=== PATIENT | female | born 1985 | race American Indian/Alaskan Native ===

== ENCOUNTER 2016-10-20 07:52 | Inpatient (IN) | payer OTHER ==
[2016-10-20] MEDS ORDERED: LACTATED RINGERS 1,000 ML ONE ×2 (08:29→10:30)
[2016-10-20] MEDS ORDERED: LACTATED RINGERS 1,000 ML IV SCH (11:00)
[2016-10-20 11:25] LABS: Hematocrit 33.3 % (30.3-42.9); Hemoglobin 10.6 gm/dl (10.1-14.3); Mean Corpuscular HGB Conc 32 % (30-34); Mean Corpuscular Hemoglobin 24 pg (28-32); Mean Corpuscular Volume 76 fl (79-97); Platelet Count 237 K/mm3 (140-440); Red Blood Count 4.39 M/mm3 (3.65-5.03); Red Cell Distribution Width 17.6 % (13.2-15.2)
[2016-10-20 11:26] LABS: Basophils % (Auto) 0.5 % (0.0-1.8); Eosinophils % (Auto) 0.7 % (0.0-4.3)
[2016-10-20] MEDS ORDERED: CLEOCIN 600 MG/50 mL 600 MG/50 ML BAG IV NR (11:30)
[2016-10-20] MEDS ORDERED: REGLAN IV NR (11:30)
[2016-10-20] MEDS ORDERED: BICITRA PO NR (11:30)
[2016-10-20] MEDS ORDERED: PEPCID IV NR (11:30)
[2016-10-20] MEDS ORDERED: GARAMYCIN 160 MG in NACL 0.9% 100 ML IV SCH (11:30)
[2016-10-20] MEDS ORDERED: CLEOCIN 900 MG/50 mL 900 MG/50 ML BAG IV ONE (13:01)
[2016-10-20] MEDS ORDERED: BICITRA ONE (13:02)
[2016-10-20] MEDS ORDERED: GARAMYCIN/NS 80 MG/100 ML 100 ML IV ONE (13:02)
[2016-10-20] MEDS ORDERED: REGLAN ONE (13:02)
[2016-10-20] MEDS ORDERED: PEPCID IV ONE (13:02)
--- NOTE | 2016-10-20 13:02 | History and Physical Report ---
History of Present Illness Date of examination: 10/20/16 Date of admission: 10/20/16 Chief complaint: contractions History of present illness: Patient presented to triage complaining of contractions patient stated the contractions were being felt every few minutes. While in triage patient was noted to be leah every 2-8 minutes. Patient was given IV hydration without resolution of contractions. Patient stated that contractions were increasing in intensity and was requesting pain medication. Patient was determined to be in latent labor and was decided that section would be done at this time. Patient also desires bilateral tubal ligation. All risks benefits and alternatives were discussed with the patient. Consents were signed and placed on the chart. Menstrual History LMP: 01/20/2016 EDC Calculations LMP: 10/26/2016 EDC Confirmation: 10/26/2016 Gestational Age: 6 weeks Past History : 3 Prev. attempt? 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 of genital herpes: no Genetic History Congenital Heart Defect: Mom: no Dad: no Donn Disease: Mom: no Dad: no Thalassemia Mom: no Dad: no Neural Tube Defect Mom: no Dad: no Down's Syndrome Mom: no Dad: no Khadar-Sachs Mom: no Dad: no Sickle Cell Disease/Trait Mom: yes Dad: no Comments: Father has trait Hemophilia Mom: no Dad: no Muscular Dystrophy Mom: no Dad: no Cystic Fibrosis Mom: no Dad: no Danilo Chorea Mom: no Dad: no Mental Retardation Mom: no Dad: no Fragile X Mom: no Dad: no Other Genetic/Chromosomal Disorder Mom: no Dad: no Child w/other defect Mom: no Dad: no Enviromental Exposures Xray Exposure: no Medication, drug, or alcohol use since LMP: no Chemical/Other Exposure: no Exposure to Cat Liter: no Hx of Parvovirus (Fifth Disease): no Active Medications: ALBUTEROL PRN () Q NASAL () CLOBEX SPRAY 0.05 % LIQD (CLOBETASOL PROPIONATE) NUVARING 0.12-0.015 MG/24HR RING (ETONOGESTREL-ETHINYL ESTRADIOL) use as directed NUVARING 0.12-0.015 MG/24HR RING (ETONOGESTREL-ETHINYL ESTRADIOL) use as directed DESOXIMETASONE CREA (DESOXIMETASONE CREA) Current Allergies (reviewed today): * PCN (Critical) Past History Past Medical History: asthma, other (Lupus) 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 denies: smoking, alcohol abuse, prescription drug abuse, IV drug use - Obstetrical History Expected Date of Delivery: 10/26/16 Actual Gestation: 39 Week(s) 1 Day(s) : 3 Para: 1 Number of Living Children: 1 Medications and Allergies Allergies Allergy/AdvReac Type Severity Reaction Status Date / Time Penicillins Allergy Severe Itching Verified 10/20/16 07:58 Home Medications Medication Instructions Recorded Confirmed Last Taken Type Ibuprofen [Motrin 800 MG tab] 800 mg PO Q8HR PRN #30 tablet 10/20/16 Unknown Rx Lidocain2.5%/Prilocai2.5% [Emla] 2 gm TP ONCE #1 tube 10/20/16 Unknown Rx oxyCODONE /ACETAMINOPHEN [Percocet 1 tab PO Q4HR #30 tab 10/20/16 Unknown Rx 5/325] Active Meds: Active Medications Citric Acid/Sodium Citrate (Bicitra) 30 ml PO ONCE NR Stop: 10/20/16 18:00 Famotidine (Pepcid) 20 mg IV ONCE NR Stop: 10/20/16 18:00 Clindamycin HCl (Cleocin 600 Mg/50 Ml) 600 mg in 50 mls @ 100 mls/hr IV PREOP NR PRN Reason: Protocol Stop: 10/20/16 18:00 Gentamicin Sulfate 160 mg/ (Sodium Chloride) 104 mls @ 200 mls/hr IV PREOP KRISTYN PRN Reason: Protocol Stop: 10/20/16 18:00 Lactated Ringer's (Lactated Ringers) 1,000 mls @ 2,250 mls/hr IV PREOP KRISTYN Stop: 10/21/16 11:27 Oxytocin/Sodium Chloride (Pitocin/Ns 20 Unit/1000ml Drip) 20 units in 1,000 mls @ 0 mls/hr IV TITR KRISTYN PRN Reason: As Directed Metoclopramide HCl (Reglan) 10 mg IV ONCE NR Stop: 10/20/16 18:00 Review of Systems All systems: negative - Vital Signs Vital signs: Vital Signs Pulse Pulse Ox 89 100 10/20/16 08:06 10/20/16 08:06 Temp Pulse Resp BP Pulse Ox 96.6 F L 88 20 118/71 100 10/20/16 08:10 10/20/16 12:51 10/20/16 08:10 10/20/16 08:10 10/20/16 12:51 - Physical Exam Cardiovascular: Normal S1, Normal S2 Lungs: Positive: Clear to auscultation, Normal air movement Abdomen: Positive: normal appearance, soft. Negative: distention, tenderness, guarding Genitourinary (Female): Positive: normal external genitalia, normal perenium - Obstetrical FHR: auscultation normal Results Result Diagrams: 10/20/16 09:10 Abnormal lab results 10/20/16 Range/Units 09:10 MCV 76 L (79-97) fl MCH 24 L (28-32) pg RDW 17.6 H (13.2-15.2) % Seg Neutrophils % 78.5 H (40.0-70.0) % All other labs normal. Assessment and Plan - Patient Problems (1) Previous delivery affecting Current Visit: Yes Status: Acute Plan to address problem: -admitting prepare for repeat section due to prolonged latent labor (2) 39 weeks gestation of Current Visit: Yes Status: Acute (3) Lupus Current Visit: Yes Status: Acute Qualifiers: Systemic lupus erythematosus type: S Systemic lupus erythematosus organ involvement: S Plan to address problem: -stable at this time patient admits that she has not been taking medications and has prescribed. (4) Obesity Current Visit: Yes Status: Acute Qualifiers: Obesity type: O Obesity severity: O (5) Sterilization Current Visit: Yes Status: Acute Plan to address problem: -all risks benefits and alternatives were discussed with the patient. Consents are signed and placed in the chart. (6) Anemia affecting in third trimester Current Visit: Yes Status: Acute Plan to address problem: -asymptomatic
[2016-10-20] MEDS ORDERED: PITOCin/NS 20 UNIT/1000ML DRIP 20,000 MILLIUNITS/1,000 ML BAG IV ONE (13:04)
[2016-10-20] MEDS ORDERED: MORPHINE ONE (13:50)
[2016-10-20] MEDS ORDERED: GELFOAM POWDER 1GM MM STA (13:52)
[2016-10-20] MEDS ORDERED: THROMBIN (BOVINE) TP STA (13:53)
[2016-10-20] MEDS ORDERED: GARAMYCIN 80 MG in NACL 0.9% 100 ML IV ONE (14:12)
[2016-10-20] MEDS ORDERED: WATER FOR IRRIG STERILE IR ONE (14:25)
[2016-10-20] MEDS ORDERED: NACL 0.9% IR ONE (14:25)
[2016-10-20] MEDS ORDERED: VERSED ONE (14:42)
[2016-10-20] MEDS: PITOCin/NS 20 UNIT/1000ML DRIP 20 UNITS/1,000 ML BAG IV SCH ×2 (15:00→16:15)
[2016-10-20] MEDS ORDERED: DILAUDID ONE (15:17)
--- NOTE | 2016-10-20 15:17 | Post Anesthesia Evaluation ---
- Post Anesthesia Evaluation Patient Participated: Yes Airway Patent: Yes Stable Respiratory Function: Yes Nausea/Vomiting: No Temp > 96.8F: Yes Pain Manageable: Yes Adequeate Hydration: Yes Anesthesia Complications: No Block Receding Appropriately: Yes Patient on Ventilator: No
--- NOTE | 2016-10-20 15:18 | Anesthesia Consultation ---
Anesthesia Consult and Med Hx Date of service: 10/20/16 - Airway Anesthetic Teeth Evaluation: Good ROM Head & Neck: Adequate Mental/Hyoid Distance: Adequate Mallampati Class: Class II Intubation Access Assessment: Probably Good - Pulmonary Exam CTA: Yes - Cardiac Exam Cardiac Exam: RRR - Pre-Operative Health Status ASA Pre-Surgery Classification: ASA3 Proposed Anesthetic Plan: Spinal - Pulmonary Hx Asthma: Yes (last attack 3-4 months ago) COPD: No Hx Pneumonia: No - Cardiovascular System Hx Hypertension: No - Central Nervous System Hx Seizures: No Hx Psychiatric Problems: No - Endocrine Hx Renal Disease: No Hx End Stage Renal Disease: No Hx Hypothyroidism: No Hx Hyperthyroidism: No - Hematic Hx Anemia: Yes Hx Sickle Cell Disease: No - Other Systems Hx Alcohol Use: No Hx Obesity: Yes (BMI > 40) - Additional Comments Anesthesia Medical History Comments: LUPUS
--- NOTE | 2016-10-20 15:18 | Anesthesia Day of Surgery ---
Anesthesia Day of Surgery - Day of Surgery Patient Examined: Yes Patient H&P Reviewed: Yes Patient is NPO: Yes
[2016-10-20] MEDS ORDERED: NARCAN 0.4 MG/1 ML IV PRN ×2 (15:30→15:47)
[2016-10-20] MEDS ORDERED: TORADOL IV PRN (15:30)
[2016-10-20] MEDS ORDERED: BENADRYL IV PRN (15:30)
[2016-10-20] MEDS ORDERED: MORPHINE IV PRN ×2 (15:30)
[2016-10-20] MEDS ORDERED: ZOFRAN IV PRN (15:30)
--- NOTE | 2016-10-20 15:46 | Operative Report ---
Operative Report Operative Report: Date of procedure:10/20/2016 Pre-operative diagnosis: 39 weeks' gestation Latent labor Lupus Anemia Desires permanent sterilization Asthma Post-operative diagnosis: same Procedure name(s): repeat low transverse section via Pfannenstiel skin incision Bilateral tubal ligation via [place] method Surgeon: Dr. Powers Ship Boss: Leonarda Vinson CST Anesthesia: spinal EBL: 500 mL Urine output: 35 mL of clear urine at the end of the procedure Fluids: 1500cc Findings: liveborn male weight 7 lbs. 15 oz. Apgars 9 and 9 at one and 5 minutes Adhesions of the uterus to the anterior abdominal wall Grossly normal fallopian tubes and ovaries bilaterally Indications: patient presented to triage complaining of regular contractions becoming progressively more painful patient was examined and noted to be approximately 1 cm. Patient's cervical exam did not change but she remained uncomfortable with every contraction stating that the contractions were becoming progressively worse. Patient was admitted and prepped for section for prolonged latency. Procedure: Patient was taking to the operating room. Patient was then prepped and draped in sterile fashion after anesthesia was found to be adequate. A low transverse skin incision was made with the scalpel through previous incisional scar and carried down to the underlying layer of fascia with the Bovie. The fascia was then incised in the midline and this incision was extended bilaterally with the Bovie. The superior aspect of the fascia was grasped with Yogi clamps tented upward and dissected off of the anterior rectus muscles with the scalpel. In similar fashion the inferior aspect of the fascia was grasped with Yogi clamps tented upward and dissected off of the anterior rectus muscles. The rectus muscles were then sharply divided in the midline. The peritoneum was identified and entered into sharply. the George retractor was placed. A lower transverse uterine incision was made with the scalpel and extended bilaterally with the bandage scissors. Artificial rupture of membranes was performed yielding clear amniotic fluid. The 's head was then delivered atraumatically. The anterior shoulder and rest of infant delivered without difficulty. The umbilical cord was clamped x2. The cord was cut. The was then placed in sterile bassinet. The placenta was manually extracted in its entirety. The uterus was exteriorized and cleared of all clots and debris. The uterine incision was closed using 0 Vicryl in a running locking fashion. several [id number] sutures were used along the incision line to secure excellent hemostasis Attention was then turned to the fallopian tubes. A knuckle of fallopian tube was grasp with the Matt suture ligated transected with ostia cauterized with the Bovie. This was repeated bilaterally A portion of the left and right fallopian tube were passed off to be sent to pathology. The posterior cul-de-sac was copiously irrigated. The uterus was returned to the abdomen. The gutters were also irrigated. The anterior rectus muscles were reapproximated using 3-0 Vicryl. The anterior rectus fascia was reapproximated using 0 Vicryl in a running fashion. The subcuticular fat was reapproximated using 2-0 Vicryl in a running fashion. The skin was reapproximated with 4-0 Monocryl in a subcuticular stitch. The patient tolerated the procedure well. Sponge lap and needle counts were all correct x3. Patient was taken to the recovery room awake and in stable condition.
[2016-10-20] MEDS ORDERED: TUCKS PAD TP PRN (15:47)
[2016-10-20] MEDS ORDERED: LANSINOH TP PRN (15:47)
[2016-10-20] MEDS ORDERED: NORCO 5/325 PO PRN (15:47)
[2016-10-20] MEDS ORDERED: SODIUM CHLORIDE FLUSH SYRINGE 10 ML IV SCH (16:00)
[2016-10-20] MEDS ORDERED: GARAMYCIN/NS 80 MG/100 ML 100 ML IV SCH (16:30)
[2016-10-20] MEDS: DILAUDID IV PRN (19:35)
[2016-10-20] MEDS: CLEOCIN 600 MG/50 mL 600 MG/50 ML BAG IV SCH (21:28)
[2016-10-20] MEDS: D5LR 1,000 ML IV SCH (21:34)
[2016-10-21] MEDS: DILAUDID IV PRN ×2 (00:06→06:30)
[2016-10-21] MEDS: CLEOCIN 600 MG/50 mL 600 MG/50 ML BAG IV SCH (05:27)
[2016-10-21] MEDS: D5LR 1,000 ML IV SCH (05:28)
[2016-10-21 06:46] LABS: Hematocrit 26.5 % (30.3-42.9); Hemoglobin 8.6 gm/dl (10.1-14.3)
[2016-10-21] MEDS ORDERED: BOOSTRIX IM ONE (06:49)
--- NOTE | 2016-10-21 08:21 | Progress Note ---
Assessment and Plan - Patient Problems (1) delivery delivered Onset Date: ~10/20/16 Current Visit: Yes Status: Acute Plan to address problem: pt A&O X 3 No c/o voiced VSS FF below umb Lochia small Incision D&I H&H pending No s/sx of anemia Doing well s/p section. P: continue pathway Adv diet and activity as tolerated. Subjective - Subjective Date of service: 10/21/16 (no c/o voiced) Principal diagnosis: Day # 1 s/p section Patient reports: appetite normal, voiding normally, pain well controlled : doing well Objective - Vital Signs Latest vital signs: Vital Signs Temp Pulse Resp BP BP Pulse Ox 10/21/16 00:39 98.6 F 74 18 113/78 10/20/16 21:47 97.6 F 74 20 121/70 10/20/16 17:00 97.4 F L 62 18 111/68 10/20/16 16:35 58 L 13 126/76 100 10/20/16 16:30 63 16 117/73 100 10/20/16 16:25 97.7 F 54 L 15 116/68 116/68 100 10/20/16 16:20 63 17 131/68 98 10/20/16 16:18 97.9 F 62 13 120/72 10/20/16 16:15 52 L 14 114/71 99 10/20/16 16:10 52 L 14 119/66 99 10/20/16 16:05 53 L 13 115/68 99 10/20/16 16:00 54 L 11 L 112/67 100 10/20/16 15:55 67 15 137/75 100 10/20/16 15:50 65 14 129/75 100 10/20/16 15:45 63 16 120/70 99 10/20/16 15:40 63 14 132/60 99 10/20/16 15:37 85 96 10/20/16 15:35 66 12 125/74 99 10/20/16 15:32 83 97 10/20/16 15:30 62 13 120/72 100 10/20/16 15:27 89 97 10/20/16 15:25 100 10/20/16 15:22 92 H 96 10/20/16 15:17 89 96 10/20/16 15:12 97 H 96 10/20/16 15:07 101 H 96 10/20/16 15:02 96 H 96 10/20/16 14:57 87 97 10/20/16 14:56 97 H 118/58 10/20/16 14:52 92 H 97 10/20/16 13:11 83 100 10/20/16 13:06 72 100 10/20/16 13:01 88 100 10/20/16 12:56 83 100 10/20/16 12:51 88 100 10/20/16 12:46 76 100 10/20/16 12:41 90 100 10/20/16 12:36 84 100 10/20/16 12:31 79 100 10/20/16 08:31 77 100 10/20/16 08:26 79 100 10/20/16 08:21 85 100 10/20/16 08:16 77 100 Intake and Output 10/20/16 10/21/16 10/21/16 22:59 06:59 14:59 Intake Total 3325 1480 Output Total 135 800 Balance 3190 680 Intake: IV 3325 1000 CLEOCIN 600 MG/50 mL 600 100 mg In 50 ml @ 100 mls/hr IV Q8H KRISTYN Rx#:[id number] D5lr 1,000 ml @ 125 mls/ 125 1000 hr IV DIRECT KRISTYN Rx#: [id number] PITOCin/NS 20 UNIT/1000ML 1000 DRIP 20 units In 1,000 ml @ As Directed IV TITR KRISTYN Rx#:[id number] Oral 480 Output: Urine 135 800 Indwelling Catheter 800 Other: Total, Intake Amount 480 Total, Output Amount 800 # Bowel Movements 0 - Exam Breasts: Present: normal Cardiovascular: Present: Regular rate Lungs: Present: Normal air movement Abdomen: Present: soft, normal bowel sounds Uterus: Present: normal, fundal height below umbilicus Extremities: Present: normal Deep Tendon Reflex Grade: Normal +2 Incision: Present: normal, dry (dressing removed by CNM), intact - Labs Labs: Abnormal lab results 10/20/16 10/21/16 Range/Units 09:10 06:13 Hgb 8.6 L (10.1-14.3) gm/dl Hct 26.5 L D (30.3-42.9) % MCV 76 L (79-97) fl MCH 24 L (28-32) pg RDW 17.6 H (13.2-15.2) % Seg Neutrophils % 78.5 H (40.0-70.0) %
[2016-10-21] MEDS: PERCOCET 5/325 PO PRN ×3 (08:22→22:35)
[2016-10-21] MEDS: MOTRIN PO PRN ×3 (08:23→22:35)
[2016-10-21] MEDS: FEOSOL PO SCH (12:30)
[2016-10-21] MEDS ORDERED: BENADRYL PO NR (15:00)
[2016-10-22] MEDS: PERCOCET 5/325 PO PRN ×3 (05:39→20:08)
[2016-10-22] MEDS ORDERED: BOOSTRIX IM ONE (06:00)
--- NOTE | 2016-10-22 08:04 | Progress Note ---
Assessment and Plan Patient doing well, no complaints this morning. Lochia scant, incision D&I, VSSAF, H&H stable, anemia - asymptomatic, fe supplementations. Patient requests d/c home tomorrow. Continue current postop pathway. - Patient Problems (1) Anemia affecting in third trimester Current Visit: Yes Status: Acute (2) delivery delivered Onset Date: ~10/20/16 Current Visit: Yes Status: Acute Subjective - Subjective Date of service: 10/22/16 Principal diagnosis: Day # 2 s/p section Patient reports: appetite normal, voiding normally, pain well controlled, flatus , ambulating normally, no dizzy ambulation, no nauseated : doing well (phototherapy in room), nursing well Objective - Vital Signs Latest vital signs: Vital Signs Temp Pulse Resp BP 10/22/16 04:08 98.8 F 78 26 H 125/58 10/21/16 16:59 98.5 F 87 18 118/64 10/21/16 11:50 98.6 F 78 20 111/71 10/21/16 08:10 98.4 F 81 20 107/62 Intake and Output 10/21/16 10/22/16 10/22/16 22:59 06:59 14:59 Intake Total 240 Balance 240 Intake: Oral 240 Other: Total, Intake Amount 240 - Exam Breasts: Present: normal, Cardiovascular: Present: Regular rate Lungs: Present: Clear to auscultation, Normal air movement Abdomen: Present: normal appearance, soft, normal bowel sounds Uterus: Present: normal, firm, fundal height at umbilicus Extremities: Present: normal Incision: Present: normal, dry, intact
[2016-10-22] MEDS: MOTRIN PO PRN ×2 (08:50→18:10)
[2016-10-22] MEDS: FEOSOL PO SCH (12:00)
[2016-10-22] MEDS ORDERED: MILK OF MAGNESIA PO PRN (16:36)
[2016-10-22] MEDS ORDERED: MYLICON PO PRN (16:40)
[2016-10-23] MEDS: MOTRIN PO PRN ×2 (02:15→13:57)
[2016-10-23] MEDS: PERCOCET 5/325 PO PRN ×2 (02:17→10:54)
--- NOTE | 2016-10-23 08:13 | Discharge Summary ---
Providers - Providers Date of Admission: 10/20/16 13:04 Date of discharge: 10/23/16 (pt agrees to d/c ) Attending physician: CINDY BARBA Primary care physician: CINDY BARBA Hospitalization Reason for admission: section Delivery: Procedure: repeat low transverse Episiotomy: none Laceration: none Incision: normal, dry, intact Other procedures: none complications: none Discharge diagnosis: IUP at term delivered baby: male Hospital course: uncomplicated repeat section Pt without complaint VSS FF below umb Lochia scant Incision D&I H&H 12/25 drop r/ t blood loss from surgery Pt is asymptomatic Doing well s/p c/s P: d/c today with instructions RTO 1 week for postop and circ. RX provided @ d/c Condition at discharge: Good Disposition: DC-01 TO HOME OR SELFCARE - Discharge Diagnoses (1) delivery delivered Status: Acute Comment: rto 1 week postop care Plan - Discharge Medications Prescriptions: Docusate Sodium [Colace] 100 mg PO BID PRN #60 capsule PRN Reason: Constipation Ferrous Sulfate [Feosol 325 MG tab] 325 mg PO QDAY #60 tablet Ibuprofen [Motrin 800 MG tab] 800 mg PO Q8HR PRN #30 tablet PRN Reason: Pain Lidocain2.5%/Prilocai2.5% [Emla] 2 gm TP ONCE #1 tube oxyCODONE /ACETAMINOPHEN [Percocet 5/325] 1 tab PO Q4HR #30 tab - Provider Discharge Summary Activity: routine, no sex for 6 weeks, no heavy lifting 4 weeks, no strenuous exercise Diet: routine Instructions: routine Additional instructions: [] Smoking cessation referral if applicable(refer to patient education folder for contact #) [] Refer to [facility] Booklet Call your doctor immediately for: * Fever > 100.5 * Heavy vaginal bleeding ( >1 pad per hour) * Severe persistent headache * Shortness of breath * Reddened, hot, painful area to leg or breast * Drainage or odor from incision. * Keep incision clean and dry at all times and follow doctor's instructions regarding bathing/showering - Follow up plan Follow up: CINDY BARBA MD [Primary Care Provider] - 7 Days (Please call [phone] to schedule your postoperative visit and your son's circumcision in 1 week. Bring EMLA cream with you to his visit. Take medications as prescribed. Call with any concerns. )
[2016-10-23 09:18] VITALS: BP 122/64
[2016-10-23] MEDS: FEOSOL PO SCH (10:54)
== END 2016-10-23 14:40 | disposition home or self-care (01) | DRG 765 ==
LOC: TRG 07:52 → UNDOADMIN 10:28 → APU 10:28 → OB 17:23
PROVIDERS: ADMIT Obstetrics & Gynecology; ATTEND Obstetrics & Gynecology
PROC: 10D00Z1 Extraction of Products of Conception, Low, Open Approach (ICD-10-PCS; principal; 2016-10-20)
PROC: 0UT70ZZ Resection of Bilateral Fallopian Tubes, Open Approach (ICD-10-PCS; 2016-10-20)
PROC: 10907ZC Drainage of Amniotic Fluid, Therapeutic from Products of Conception, Via Natural or Artificial Opening (ICD-10-PCS; 2016-10-20)
PROC: 3E0234Z Introduction of Serum, Toxoid and Vaccine into Muscle, Percutaneous Approach (ICD-10-PCS; 2016-10-22)
DX: O34.211 Maternal care for low transverse scar from previous cesarean delivery (principal); Z68.41 Body mass index [BMI] 40.0-44.9, adult; O99.02 Anemia complicating childbirth; O99.214 Obesity complicating childbirth; O99.52 Diseases of the respiratory system complicating childbirth; O75.89 Other specified complications of labor and delivery; M32.9 Systemic lupus erythematosus, unspecified; E66.9 Obesity, unspecified; D64.9 Anemia, unspecified; J45.909 Unspecified asthma, uncomplicated; Z3A.39 39 weeks gestation of pregnancy; Z37.0 Single live birth; Z88.0 Allergy status to penicillin; Z23 Encounter for immunization
CPT/HCPCS: 36415; 85014; 85018; 85025; 86850; 86900; 86901; 88302; 90471; 90715; 99211; A6250; G0463; J1170; J1580; J2250; J2270; J2590; J2765; J7120; J7121

== ENCOUNTER 2019-01-02 09:42 | Day surgery (SDC) | payer OTHER ==
[2019-01-02 10:48] LABS: Basophils % (Auto) 0.7 % (0.0-1.8); Eosinophils # (Auto) 0.1 K/mm3 (0.0-0.4); Eosinophils % (Auto) 2.3 % (0.0-4.3); Hematocrit 33.3 % (30.3-42.9); Hemoglobin 10.9 gm/dl (10.1-14.3); Lymphocytes # (Auto) 1.1 K/mm3 (1.2-5.4); Lymphocytes % (Auto) 29.4 % (13.4-35.0); Mean Corpuscular HGB Conc 33 % (30-34); Mean Corpuscular Volume 77 fl (79-97); Monocytes # (Auto) 0.4 K/mm3 (0.0-0.8); Monocytes % (Auto) 11.2 % (0.0-7.3); Platelet Count 344 K/mm3 (140-440); Red Blood Count 4.31 M/mm3 (3.65-5.03); Red Cell Distribution Width 16.6 % (13.2-15.2)
[2019-01-02 11:01] LABS: INR 1.04 (0.87-1.13)
[2019-01-02 11:02] LABS: Partial Thromboplastin Time 29.2 Sec. (24.2-36.6)
--- NOTE | 2019-01-02 12:32 | Short Stay Summary ---
Short Stay Documentation Date of service: 01/02/19 - History Principal diagnosis: headache, pseudotumor cerebri - Allergies and Medications Current Medications: Allergies Penicillins Allergy (Severe, Verified 10/20/16 07:58) Itching mom told her Home Medications Medication Instructions Recorded Confirmed Last Taken Type Hydroxychloroquine [Plaquenil] 200 mg PO QDAY tablet 11/02/16 01/02/[address] [Adán Owens] 75 mg PO DAILY 01/02/19 01/02/19 1 Week Ago History ~12/26/18 - Physical exam General appearance: no acute distress Neurological: Normal gait, Normal speech, Strength at 5/5 X4 ext, Normal tone, Sensation intact - Brief post op/procedure progress note Date of procedure: 01/02/19 Pre-op diagnosis: headache, pseudotumor Post-op diagnosis: same Procedure: lumbar puncture under flouroscopy Anesthesia: local Findings: see report Surgeon: JOVON PRADO Estimated blood loss: none Pathology: list (2 csf tubes) Specimen disposition: to lab Condition: stable - Hospital course Hospital course: uneventful - Disposition Condition at discharge: Good Disposition: DC-01 TO HOME OR SELFCARE Short Stay Discharge Plan Follow up with: NOAH BRADSHAW MD [Primary Care Provider] - 7 Days
[2019-01-02 13:08] VITALS: BP 110/65
--- NOTE | 2019-01-02 13:20 | Fluoroscopy Report ---
LUMBAR PUNCTURE INDICATION : Headache, pseudotumor cerebri PROCEDURE: The risks (including but not limited to bleeding, infection, and spinal headache) and cuco efits were explained to the patient and informed consent was obtained. A time out procedure was perf ormed. The procedure site was prepped and draped in the usual sterile fashion and lidocaine was used for local anesthesia. Under fluoroscopic guidance, a 22-gauge spinal needle was advanced into the L4-5 interlaminar space. The opening pressure was 100 mm H2O which was calculated by adding the length of the needle (9 cm) to the height of the CSF column. Traumatic tap was obtained. Only approximately 2 cc of CSF fluid could be collected into CSF tubes. Samples were sent to the lab per the ordering physician specifications for further evaluation. The patient tolerated the procedure well with no complications. IMPRESSION: Successful lumbar puncture as outlined above. Opening pressure was 100 mm H20. Fluoroscopic time: 1.0 Number of fluoroscopic images: 1 Signer Name: Anthony Bryant Jr, MD Signed: 01/02/2019 1:16 PM Workstation Name: [id number]
[2019-01-02 14:03] LABS: Glucose,CSF 55 mg/dL
[2019-01-02 16:40] LABS: Appearance,CSF Hazy; Red Blood Cell,CSF 10500 /mm3 (0-0)
[2019-01-02 17:27] LABS: White Blood Cell,CSF 125 /mm3 (1-10)
[2019-01-02 17:48] LABS: Total Cells Counted 100 /mm3
[2019-01-02 17:49] LABS: Basophils CSF 0 %
== END 2019-01-02 13:30 | disposition home or self-care (01) ==
LOC: CATHLABREC 09:42 → EDSTATUS 10:00 → CATHLABREC 13:30
PROVIDERS: ATTEND Specialist
DX: G93.2 Benign intracranial hypertension (principal); E66.9 Obesity, unspecified; G62.9 Polyneuropathy, unspecified; J45.909 Unspecified asthma, uncomplicated; F41.9 Anxiety disorder, unspecified; M19.90 Unspecified osteoarthritis, unspecified site; Z88.0 Allergy status to penicillin; Z79.899 Other long term (current) drug therapy; Z68.41 Body mass index [BMI] 40.0-44.9, adult; Z98.51 Tubal ligation status; Z98.890 Other specified postprocedural states; Z98.891 History of uterine scar from previous surgery; Z87.440 Personal history of urinary (tract) infections; Z83.3 Family history of diabetes mellitus; Z80.8 Family history of malignant neoplasm of other organs or systems; Z82.49 Family history of ischemic heart disease and other diseases of the circulatory system; Z86.2 Personal history of diseases of the blood and blood-forming organs and certain disorders involving the immune mechanism
CPT/HCPCS: 36415; 62270; 77003; 82947; 84160; 85025; 85610; 85730; 86592; 89051